=== PATIENT | male | born 1975 | race Caucasian/White ===

== ENCOUNTER 2018-12-17 09:58 | Emergency (ER) | payer BC, OTHER ==
[2018-12-17] MEDS ORDERED: IPRATROPIUM BROM 0.5MG/2.5ML ONE (10:18)
[2018-12-17] MEDS ORDERED: ALBUTEROL 2.5 MG/3 ML NEB SOL ONE (10:18)
[2018-12-17] MEDS ORDERED: METHYLPREDNISOLONE 125 MG INJ ONE (10:18)
[2018-12-17 10:43] LABS: Absolute Lymphocytes (CBC) 3.4 K/uL (0.7-4.9); Basophils % 0.6 % (0-1.3); Hematocrit 45.3 % (39.6-49.0); MPV 8.9 fL (7.6-11.3); RBC Red Blood Cell Count 5.12 M/uL (4.33-5.43)
[2018-12-17 10:54] LABS: Protime INR 1.08
[2018-12-17 11:14] LABS: ALT/SGPT 63 U/L (12-78); AST/SGOT 56 U/L (15-37); Albumin 4.5 g/dL (3.4-5.0); Alkaline Phosphatase 92 U/L (45-117); BUN Blood Urea Nitrogen 7 mg/dL (7-18); Bicarbonate 26 mmol/L (21-32); Bilirubin Direct 0.1 mg/dL (0-0.2); Bilirubin Total 0.6 mg/dL (0.2-1.0); Glucose Level 85 mg/dL (74-106); Magnesium 2.3 mg/dL (1.8-2.4); Potassium 3.7 mmol/L (3.5-5.1); Protein, Total 8.4 g/dL (6.4-8.2); Sodium Level 138 mmol/L (136-145); Troponin (Emerg Dept Use Only) < 0.02 ng/mL (0.0-0.045)
[2018-12-17 11:27] LABS: NT PRO-BNP < 5 pg/mL (<125)
--- NOTE | 2018-12-17 12:48 | RAD REPORT ---
EXAM DESCRIPTION: Charisma Ruiz (2 Views)12/17/2018 12:35 pm CLINICAL HISTORY: Cough COMPARISON: 2014 FINDINGS: Old left rib fractures. The lungs appear clear of acute infiltrate. The heart is normal size IMPRESSION: No acute abnormalities displayed
--- NOTE | 2018-12-17 13:04 | ER ---
Nurse's Notes [facility] Name: Tristin Chavez Age: 43 yrs Sex: Male : 1975 Arrival Date: 12/17/2018 Time: 10:01 Bed 20 Private MD: None, None Diagnosis: Bronchitis, not specified as acute or chronic Presentation: 12/17 10:04 Presenting complaint: Patient states: cough, SOB x 1 month; went to get seen at urgent sv care and given prescriptions; symptoms have worsened and now has chest tightness. Denies fever/chills. Transition of care: patient was not received from another setting of care. Onset of symptoms was October 2018. Risk Assessment: Do you want to hurt yourself or someone else? Patient reports no desire to harm self or others. Care prior to arrival: None. 10:04 Method Of Arrival: Ambulatory sv 10:04 Acuity: ANURAG 2 sv 10:15 Initial Sepsis Screen: Does the patient meet any 2 criteria? RR > 20 per min. HR > 90 em bpm. Yes Does the patient have a suspected source of infection? Yes: Productive cough/pneumonia. Historical: - Allergies: 10:09 No Known Allergies; sv - Home Meds: 10:09 meloxicam oral oral [Active]; MVI [Active]; sv - PSHx: 10:09 Ear Tubes; Tonsillectomy; Knee surgery; sv - Immunization history:: Adult Immunizations up to date, Flu vaccine is not up to date. - Social history:: Smoking status: Patient uses tobacco products, smokes one-half pack cigarettes per day. - Ebola Screening: : No symptoms or risks identified at this time. Screenin:27 Abuse screen: Denies threats or abuse. Nutritional screening: No deficits noted. em Tuberculosis screening: No symptoms or risk factors identified. Fall Risk None identified. Assessment: 10:25 General: Appears in no apparent distress. comfortable, Behavior is calm, cooperative, em Denies fever. Pain: Denies pain. Neuro: Level of Consciousness is awake, alert, obeys commands, Oriented to person, place, time, situation. Cardiovascular: Capillary refill < 3 seconds Patient's skin is warm and dry. Rhythm is sinus tachycardia. Respiratory: Reports cough that is productive, pain with cough Airway is patent Respiratory effort is even, unlabored, Respiratory pattern is regular, symmetrical, Breath sounds with wheezes bilaterally. Onset: The symptoms/episode began/occurred 1 month. GI: Patient currently denies nausea, vomiting. Derm: Skin is intact, is healthy with good turgor, Skin is pink, warm \T\ dry. Musculoskeletal: Capillary refill < 3 seconds, Range of motion: intact in all extremities. 11:09 Reassessment: Patient appears in no apparent distress at this time. Patient and/or em family updated on plan of care and expected duration. Pain level reassessed. Patient is alert, oriented x 3, equal unlabored respirations, skin warm/dry/pink. Patient states feeling better. Patient states symptoms have improved. 12:00 Reassessment: Patient appears in no apparent distress at this time. Patient and/or em family updated on plan of care and expected duration. Pain level reassessed. Patient is alert, oriented x 3, equal unlabored respirations, skin warm/dry/pink. Patient states feeling better. Patient states symptoms have improved. 12:56 Reassessment: provider at bedside discussing POC. em Vital Signs: 10:10 BP 133 / 104; Pulse 107; Resp 20; Pulse Ox 100% ; Weight 94.8 kg; Height 5 ft. 10 in. sv (177.80 cm); Pain 0/10; 10:27 BP 126 / 77; Pulse 105; Resp 24; Pulse Ox 100% on R/A; em 11:30 BP 135 / 81; Pulse 95; Resp 18; Pulse Ox 99% on R/A; em 12:30 BP 128 / 71; Pulse 91; Resp 20; Pulse Ox 99% on R/A; em 10:10 Body Mass Index 29.99 (94.80 kg, 177.80 cm) sv ED Course: 10:01 Patient arrived in ED. mr 10:02 None, None is Private Physician. mr 10:05 Elliot Navarro LVN is Primary Nurse. em 10:09 Triage completed. sv 10:10 Arm band placed on. sv 10:11 Burt Tello NP is PHCP. pm1 10:11 Kaden Paul MD is Attending Physician. pm1 10:15 EKG done, by outdoor emergency care technician. reviewed by Burt Tello NP. at1 10:27 Patient has correct armband on for positive identification. Fall risk band placed. em Placed in gown. termite treater helper on. Pulse ox on. NIBP on. 10:30 Initial lab(s) drawn, by me, sent to lab. Inserted saline lock: 22 gauge in right em antecubital area, using aseptic technique. Blood collected. 10:30 Patient maintains SpO2 saturation greater than 95% on room air. em 12:44 Chest Pa And Lat (2 Views) XRAY In Process Unspecified. EDMS 13:20 No provider procedures requiring assistance completed. IV discontinued, intact, em bleeding controlled, No redness/swelling at site. Pressure dressing applied. Administered Medications: 10:21 Drug: Albuterol - atroVENT (3:1) (2.5 mg - 0.5 mg) 3 ml Route: Nebulizer; em 10:34 Drug: SOLU-Medrol 125 mg Route: IVP; Site: right antecubital; iw Outcome: 13:03 Discharge ordered by MD. pm1 13:20 Discharged to home ambulatory. em 13:20 Condition: good 13:20 Discharge instructions given to patient, Instructed on discharge instructions, follow up and referral plans. medication usage, Demonstrated understanding of instructions, follow-up care, medications, Prescriptions given X 3. 13:24 Patient left the ED. em Signatures: Dispatcher [employer] EDMS Hali Banerjee RN RN sv Rivera, Mary mr Munoz, Edgar, STOCK TURNER STOCK TURNER em Bianca Chavez, RN Sunni Huff, wool sampler EKG Tat1 Burt Tello, FAMILY SERVICE AIDE FAMILY SERVICE AIDE pm1 Corrections: (The following items were deleted from the chart) 10:10 10:04 Acuity: ANURAG 3 sv sv
--- NOTE | 2018-12-17 13:04 | EDPHYS ---
Physician Documentation [facility] Name: Tristin Chavez Age: 43 yrs Sex: Male : 1975 Arrival Date: 12/17/2018 Time: 10:01 Bed 20 Private MD: None, None ED Physician Kaden Paul HPI: 12/17 10:18 This 43 yrs old Male presents to ER via Ambulatory with complaints of Cough, pm1 Chest Tightness, Breathing Difficulty, Congestion. 10:18 The patient or guardian reports cough, with no sputum, shortness of brreath. Onset: The pm1 symptoms/episode began/occurred 1 month(s) ago. Severity of symptoms: in the emergency department the symptoms are actually worse. Modifying factors: The symptoms are alleviated by nothing, the symptoms are aggravated by nothing. Associated signs and symptoms: Pertinent positives: chest pain, with cough, Pertinent negatives: fever, sore throat. The patient has experienced a previous episode, many years ago. The patient has been recently seen at an urgent care, for similar complaints, was given a prescription for antibiotics, 9 days ago given amoxicillin and albuterol inhaler. Historical: - Allergies: 10:09 No Known Allergies; sv - Home Meds: 10:09 meloxicam oral oral [Active]; MVI [Active]; sv - PSHx: 10:09 Ear Tubes; Tonsillectomy; Knee surgery; sv - Immunization history:: Adult Immunizations up to date, Flu vaccine is not up to date. - Social history:: Smoking status: Patient uses tobacco products, smokes one-half pack cigarettes per day. - Ebola Screening: : No symptoms or risks identified at this time. ROS: 10:18 Constitutional: Negative for fever, chills, and weight loss, Eyes: Negative for injury, pm1 pain, redness, and discharge, ENT: Negative for injury, pain, and discharge, Neck: Negative for injury, pain, and swelling, Cardiovascular: Negative for chest pain, palpitations, and edema. 10:18 Abdomen/GI: Negative for abdominal pain, nausea, vomiting, diarrhea, and constipation, Back: Negative for injury and pain, : Negative for injury, bleeding, discharge, and swelling, MS/Extremity: Negative for injury and deformity, Skin: Negative for injury, rash, and discoloration, Neuro: Negative for headache, weakness, numbness, tingling, and seizure. 10:18 Respiratory: Positive for cough, shortness of breath, Negative for wheezing. Exam: 10:18 Constitutional: This is a well developed, well nourished patient who is awake, alert, pm1 and in no acute distress. Head/Face: Normocephalic, atraumatic. Eyes: Pupils equal round and reactive to light, extra-ocular motions intact. Lids and lashes normal. Conjunctiva and sclera are non-icteric and not injected. Cornea within normal limits. Periorbital areas with no swelling, redness, or edema. ENT: Nares patent. No nasal discharge, no septal abnormalities noted. Tympanic membranes are normal and external auditory canals are clear. Oropharynx with no redness, swelling, or masses, exudates, or evidence of obstruction, uvula midline. Mucous membranes moist. Neck: Trachea midline, no thyromegaly or masses palpated, and no cervical lymphadenopathy. Supple, full range of motion without nuchal rigidity, or vertebral point tenderness. No Meningismus. Chest/axilla: Normal chest wall appearance and motion. Nontender with no deformity. No lesions are appreciated. Cardiovascular: Regular rate and rhythm with a normal S1 and S2. No gallops, murmurs, or rubs. Normal PMI, no JVD. No pulse deficits. 10:18 Abdomen/GI: Soft, non-tender, with normal bowel sounds. No distension or tympany. No guarding or rebound. No evidence of tenderness throughout. Back: No spinal tenderness. No costovertebral tenderness. Full range of motion. Skin: Warm, dry with normal turgor. Normal color with no rashes, no lesions, and no evidence of cellulitis. MS/ Extremity: Pulses equal, no cyanosis. Neurovascular intact. Full, normal range of motion. 10:18 Respiratory: the patient does not display signs of respiratory distress, Respirations: normal, Breath sounds: wheezing: is heard diffusely. Vital Signs: 10:10 BP 133 / 104; Pulse 107; Resp 20; Pulse Ox 100% ; Weight 94.8 kg; Height 5 ft. 10 in. sv (177.80 cm); Pain 0/10; 10:27 BP 126 / 77; Pulse 105; Resp 24; Pulse Ox 100% on R/A; em 11:30 BP 135 / 81; Pulse 95; Resp 18; Pulse Ox 99% on R/A; em 12:30 BP 128 / 71; Pulse 91; Resp 20; Pulse Ox 99% on R/A; em 10:10 Body Mass Index 29.99 (94.80 kg, 177.80 cm) sv MDM: 10:12 Patient medically screened. pm1 12:51 Data reviewed: vital signs. Data interpreted: Pulse oximetry: on room air is 100 %. pm1 Interpretation: normal. 13:02 Counseling: I had a detailed discussion with the patient and/or guardian regarding: the pm1 historical points, exam findings, and any diagnostic results supporting the discharge/admit diagnosis, lab results, radiology results, the need for outpatient follow up, to return to the emergency department if symptoms worsen or persist or if there are any questions or concerns that arise at home. 13:04 ED course: Patient currently taking amoxicillin. Has 1 day left. Instructed the patient pm1 to take azithromycin instead since unlikely that amoxicillin would address his issues. Patient with elevated WBC of 16. Negative xray for pneumonia. Patient not currently taking steroid therapy. Was given steroid shot 9 days ago at clinic. Will treat with abx therapy due to possible bacterial bronchitis. 12/17 10:18 Order name: Basic Metabolic Panel pm1 12/17 10:18 Order name: CBC with Diff pm1 12/17 10:18 Order name: LFT's pm12/17 10:18 Order name: Magnesium pm1 12/17 10:18 Order name: NT PRO-BNP pm1 12/17 10:18 Order name: PT-INR pm1 12/17 10:18 Order name: Troponin (emerg Dept Use Only) pm1 12/17 10:44 Order name: CBC with Automated Diff; Complete Time: 10:51 EDMS 12/17 11:07 Order name: Protime (+INR); Complete Time: 11:10 EDMS 12/17 11:28 Order name: Basic Metabolic Panel; Complete Time: 11:33 EDMS 12/17 11:28 Order name: Liver (Hepatic) Function; Complete Time: 11:33 EDMS 12/17 11:28 Order name: Troponin (Emerg Dept Use Only); Complete Time: 11:33 EDMS 12/17 11:28 Order name: NT PRO-BNP; Complete Time: 11:33 EDMS 12/17 11:28 Order name: Magnesium; Complete Time: 11:33 EDMS 12/17 10:10 Order name: EKG; Complete Time: 10:11 sv 12/17 10:10 Order name: EKG - Nurse/Tech; Complete Time: 10:35 sv 12/17 10:18 Order name: IV Saline Lock; Complete Time: 10:35 pm1 12/17 10:18 Order name: Cardiac monitoring; Complete Time: 10:35 pm1 12/17 10:18 Order name: Labs collected and sent; Complete Time: 10:35 pm1 12/17 10:18 Order name: O2 Per Protocol; Complete Time: 10:35 pm1 12/17 10:18 Order name: O2 Sat Monitoring; Complete Time: :35 pm1 12/17 11:12 Order name: Chest Pa And Lat (2 Views) XRAY pm1 Administered Medications: 10:21 Drug: Albuterol - atroVENT (3:1) (2.5 mg - 0.5 mg) 3 ml Route: Nebulizer; em 10:34 Drug: SOLU-Medrol 125 mg Route: IVP; Site: right antecubital; iw Disposition: 16:05 Co-signature as Attending Physician, Kaden Paul MD I agree with the assessment and kdr plan of care. Disposition: 12/17/18 13:03 Discharged to Home. Impression: Bronchitis, not specified as acute or chronic. - Condition is Stable. - Discharge Instructions: Acute Bronchitis, Adult, How to Use an Inhaler. - Prescriptions for Albuterol Sulfate 2.5 mg /3 mL (0.083 %) Inhalation Solution for Nebulization - inhale 1 unit by NEBULIZATION route every 8 hours As needed; 1 box. Zithromax Z- Rupert 250 mg Oral Tablet - take 1 tablet by ORAL route as directed for 5 days Day 1 - take two (2) tablets one time. Day 2, 3, 4 , 5 take one (1) tablet once daily.; 6 tablet. Medrol (Rupert) 4 mg Oral Tablets, Dose Pack - take 1 tablet by ORAL route as directed - follow package instructions; 1 packet. - Work release form, Medication Reconciliation Form, Thank You Letter, Antibiotic Education, Prescription Opioid Use form. - Follow up: Emergency Department; When: As needed; Reason: Worsening of condition. Follow up: Private Physician; When: 2 - 3 days; Reason: Recheck today's complaints, Continuance of care, Re-evaluation by your physician. - Problem is new. - Symptoms have improved. Signatures: Dispatcher [employer] Hali Piña, RN RN Kaden Goldstein MD MD kdr Munoz, Elliot, WATER FILTERER HELPER WATER FILTERER HELPER em Bianca Chavez RN RN iw Marinas, Patrick, NP INSTALLMENT AGENT pm1 Corrections: (The following items were deleted from the chart) 13:24 13:03 12/17/2018 13:03 Discharged to Home. Impression: Bronchitis, not specified as em acute or chronic. Condition is Stable. Forms are Medication Reconciliation Form, Thank You Letter, Antibiotic Education, Prescription Opioid Use. Follow up: Emergency Department; When: As needed; Reason: Worsening of condition. Follow up: Private Physician; When: 2 - 3 days; Reason: Recheck today's complaints, Continuance of care, Re-evaluation by your physician. Problem is new. Symptoms have improved. pm1
[2018-12-17 13:36] VITALS: O2SAT 99
[2018-12-17 13:37] VITALS: BP 128/71
--- NOTE | 2018-12-19 08:12 | EKG ---
Test Date: 2018-12-17 Test Time: 10:11:[address] Radio Installer: LIANA MEASUREMENT RESULTS: Intervals: Rate: 97 DE: 128 QRSD: 80 QT: 342 QTc: 434 Dixon: P: 51 DE: 128 QRS: 56 T: 18 INTERPRETIVE STATEMENTS: Normal sinus rhythm Normal ECG No previous ECG available for comparison Electronically Signed On 12-19-18 08:07:37 CDT by Regis Barton
== END 2018-12-17 13:24 | disposition home or self-care (01) ==
LOC: ER 09:58
DX: J40 Bronchitis, not specified as acute or chronic (principal)
CPT/HCPCS: 93005; 85025; 80048; 36415; 83735; 85610; 80076; 84484; 83880; 71046; 94640; 96374; 99285; J2930